=== PATIENT | male | born 1980 | race African-American/Black ===

== ENCOUNTER 2017-12-26 17:54 | Emergency (ER) | payer OTHER ==
[~2017-12-26] VITALS: Ht 190.5 cm; Wt 77.1 kg
[2017-12-26 18:01] VITALS: BP 141/83
== END 2017-12-26 18:26 ==
LOC: ER 18:01
DX: S01.511A Laceration without foreign body of lip, initial encounter (principal); Y04.0XXA Assault by unarmed brawl or fight, initial encounter; Y93.89 Activity, other specified; Y92.89 Other specified places as the place of occurrence of the external cause; Y99.8 Other external cause status
CPT/HCPCS: A4606; Z7610